=== PATIENT | male | born 1960 | race American Indian/Alaskan Native ===

== ENCOUNTER 2023-11-30 11:33 | Inpatient (IN) | payer OTHER ==
[2023-11-30] MEDS ORDERED: IBUPROFEN 600 MG TABLET (FP) PO ONE (13:42)
[2023-11-30] MEDS: IBUPROFEN 600 MG TABLET (FP) PO ONE (13:47)
[2023-11-30] MEDS ORDERED: VANCOMYCIN/WATER 1250 MG 1,250 MG/250 ML BAG IVPB ONE (14:09)
[2023-11-30] MEDS ORDERED: PIPERACILLIN/TAZOB 4.5 GM 4.5 GM/100 ML BAG IVPB ONE (14:10)
[2023-11-30] MEDS: LACTATED RINGERS SOLUTION 1000 ML INFUS.BAG IV ONE ×2 (14:55→16:09)
[2023-11-30] MEDS: ACETAMINOPHEN 1000 MG/100 ML BAG IVPB ONE (14:56)
[2023-11-30] MEDS: VANCOMYCIN PREMIX 1.5 GM 1,500 MG/300 ML BAG IVPB ONE (14:56)
[2023-11-30] MEDS ORDERED: ACETAMINOPHEN INJECTION 100 ML IVPB ONE (14:56)
[2023-11-30 15:24] LABS: BASO % 0.3 % (0-2.0); EOS % 0.5 % (0-4.5); HEMOGLOBIN 10.5 GM/dL (11.7-16.9); MEAN CELL VOLUME 88.4 fl (80-96); MEAN PLT VOLUME 7.2 fl (7.5-11.1); MONO % 8.1 % (3.8-10.2); NEUT % 83.1 % (42.8-82.8); PLATELET COUNT 423 10^3/uL (134-434); RDW 15.1 % (11.9-15.9); WHITE BLOOD COUNT 18.7 K/mm3 (4.0-10.0)
[2023-11-30 15:30] LABS: INR 1.19 (0.83-1.09); PROTHROMBIN TIME (PATIENT) 13.8 SEC (9.7-13.0)
[2023-11-30 15:33] LABS: ACTIVATED PTT 32.8 SECONDS (25.2-36.5)
[2023-11-30 15:42] LABS: POTASSIUM 5.3 mmol/L (3.5-5.1)
[2023-11-30 15:43] LABS: BLOOD UREA NITROGEN 32.1 mg/dL (7-18); CALCIUM 8.6 mg/dL (8.5-10.1)
[2023-11-30 15:44] LABS: ALBUMIN 2.3 g/dl (3.4-5.0)
[2023-11-30 15:46] LABS: CREATININE 1.3 mg/dL (0.55-1.3)
[2023-11-30 15:48] LABS: BILIRUBIN,TOTAL 0.6 mg/dL (0.2-1); TOT PROT 8.2 g/dl (6.4-8.2)
[2023-11-30] MEDS: VANCOMYCIN/WATER 1250 MG 1,250 MG/250 ML BAG IVPB ONE (15:57)
[2023-11-30] MEDS: VANCOMYCIN HCL 1,500 MG in DEXTROSE 5%-WATER - 500 ML IVPB ONE (15:57)
[2023-11-30] MEDS: PIPERACILLIN/TAZOB 4.5 GM 4.5 GM in DEXTROSE 5%-WATER 100 ML IVPB ONE (15:57)
[2023-11-30] MEDS ORDERED: SODIUM ZIRCONIUM CYCLOSILICATE (LOKELMA) 10 GM PACKET ONE (16:21)
[2023-11-30] MEDS: SODIUM ZIRCONIUM CYCLOSILICATE (LOKELMA) 5 GM PACKET PO ONE (16:36)
[2023-11-30] MEDS ORDERED: ACETAMINOPHEN 325 MG TABLET (FP) PO PRN (17:02)
[2023-11-30 19:36] VITALS: BMI 26.6
[2023-11-30] MEDS ORDERED: FENTANYL PATCH WASTE MC PRN (20:45)
[2023-11-30 20:56] LABS: BASO % 0.3 % (0-2.0); HEMATOCRIT 30.3 % (35.4-49); HEMOGLOBIN 10.3 GM/dL (11.7-16.9); LYMPH % 9.7 % (8-40); MCH 29.6 pg (25.7-33.7); MCHC 33.9 g/dl (32.0-35.9); MEAN CELL VOLUME 87.4 fl (80-96); MEAN PLT VOLUME 6.9 fl (7.5-11.1); PLATELET COUNT 376 10^3/uL (134-434); RBC 3.46 M/mm3 (4.00-5.60); RDW 15.6 % (11.9-15.9)
[2023-11-30] MEDS: HEPARIN NA (PORCINE) 5,000 UNITS/ML 1ML VIAL SQ SCH (21:21)
[2023-11-30] MEDS: PIPERACILLIN/TAZOB 4.5 GM 4.5 GM in DEXTROSE 5%-WATER 100 ML IVPB SCH (21:21)
[2023-11-30] MEDS: INSULIN ASPART SLIDING SCALE (NOVOLOG) 1 VIAL SQ SCH (22:11)
[2023-11-30] MEDS: SENNOSIDES 8.6MG TABLET (FP) PO SCH (22:12)
[2023-11-30] MEDS: oxyCODONE HCL 5 MG TABLET PO PRN (23:49)
[2023-12-01 09:03] LABS: BASO % 0.2 % (0-2.0); EOS % 0.5 % (0-4.5); HEMATOCRIT 28.9 % (35.4-49); LYMPH % 7.8 % (8-40); MCH 30.1 pg (25.7-33.7); MCHC 34.6 g/dl (32.0-35.9); MONO % 6.6 % (3.8-10.2); NEUT % 84.9 % (42.8-82.8); PLATELET COUNT 380 10^3/uL (134-434); RBC 3.32 M/mm3 (4.00-5.60); RDW 15.2 % (11.9-15.9); WHITE BLOOD COUNT 16.3 K/mm3 (4.0-10.0)
[2023-12-01 09:20] LABS: POTASSIUM 4.7 mmol/L (3.5-5.1)
[2023-12-01 09:31] LABS: CALCIUM 8.3 mg/dL (8.5-10.1)
[2023-12-01 09:32] LABS: MAGNESIUM 2.3 mg/dL (1.8-2.4)
[2023-12-01 09:35] LABS: CREATININE 1.3 mg/dL (0.55-1.3)
[2023-12-01 09:36] LABS: BILIRUBIN,TOTAL 0.5 mg/dL (0.2-1); TOT PROT 6.9 g/dl (6.4-8.2)
[2023-12-01 09:37] LABS: ALBUMIN 1.8 g/dl (3.4-5.0)
[2023-12-01] MEDS ORDERED: fentaNYL 12mcg/hr PATCH.TD72 TD SCH (10:00)
[2023-12-01] MEDS: LENVATINIB PO SCH (10:30)
[2023-12-01] MEDS: [UNRECOGNIZED DRUG - OTHER] PO SCH (10:30)
[2023-12-01] MEDS ORDERED: INSULIN (NOVOLOG) ASPART 100 UNITS/ML 10ML VIAL ONE ×2 (11:00→21:30)
[2023-12-01] MEDS ORDERED: ONDANSETRON 4 MG/2 ML VIAL IVPUSH PRN ×2 (12:30→14:25)
[2023-12-01] MEDS: PIPERACILLIN/TAZOB 4.5 GM 4.5 GM in DEXTROSE 5%-WATER 100 ML IVPB SCH (14:28)
[2023-12-01] MEDS: LACTATED RINGERS SOLUTION 1,000 ML IV SCH ×2 (14:30→15:07)
[2023-12-01] MEDS ORDERED: PIPERACILLIN/TAZOB 4.5 GM 4.5 GM in DEXTROSE 5%-WATER 100 ML IVPB SCH (15:00)
[2023-12-01] MEDS: VANCOMYCIN/WATER FOR INJ (PEG) 1,000 MG/200 ML BAG IVPB SCH (16:24)
[2023-12-01] MEDS: oxyCODONE HCL 5 MG TABLET PO PRN ×2 (16:24→21:45)
[2023-12-01] MEDS: INSULIN ASPART SLIDING SCALE (NOVOLOG) 1 VIAL SQ SCH (17:33)
[2023-12-01] MEDS: PIPERACILLIN/TAZOB 3.375 GM 3.375 GM in DEXTROSE 5%-WATER - 50 ML IVPB SCH (18:28)
[2023-12-01] MEDS: ACETAMINOPHEN 325 MG TABLET (FP) PO SCH (20:15)
[2023-12-01] MEDS: SENNOSIDES 8.6MG TABLET (FP) PO SCH (21:45)
[2023-12-01] MEDS: VALSARTAN 160 MG TABLET PO SCH (21:45)
[2023-12-01] MEDS: HEPARIN NA (PORCINE) 5,000 UNITS/ML 1ML VIAL SQ SCH (21:45)
[2023-12-01] MEDS ORDERED: VALSARTAN 160 MG TABLET PO SCH (22:00)
[2023-12-02] MEDS: LENVATINIB MESYLATE PO SCH (09:52)
[2023-12-02 09:53] LABS: BASO % 0.7 % (0-2.0); EOS % 2.7 % (0-4.5); HEMATOCRIT 28.8 % (35.4-49); HEMOGLOBIN 9.8 GM/dL (11.7-16.9); LYMPH % 8.8 % (8-40); MEAN CELL VOLUME 88.2 fl (80-96); MEAN PLT VOLUME 6.7 fl (7.5-11.1); MONO % 6.5 % (3.8-10.2); NEUT % 81.3 % (42.8-82.8); PLATELET COUNT 383 10^3/uL (134-434); RBC 3.26 M/mm3 (4.00-5.60); RDW 15.6 % (11.9-15.9); WHITE BLOOD COUNT 17.7 K/mm3 (4.0-10.0)
[2023-12-02 10:24] LABS: POTASSIUM 4.2 mmol/L (3.5-5.1)
[2023-12-02 10:26] LABS: ALBUMIN 1.7 g/dl (3.4-5.0); CALCIUM 8.6 mg/dL (8.5-10.1)
[2023-12-02 10:27] LABS: BLOOD UREA NITROGEN 27.5 mg/dL (7-18)
[2023-12-02 10:30] LABS: CREATININE 1.4 mg/dL (0.55-1.3)
[2023-12-02 10:31] LABS: BILIRUBIN,TOTAL 0.7 mg/dL (0.2-1); TOT PROT 6.8 g/dl (6.4-8.2)
[2023-12-02] MEDS ORDERED: INSULIN (NOVOLOG) ASPART 100 UNITS/ML 10ML VIAL ONE ×2 (11:22→22:10)
[2023-12-02] MEDS: POLYETHYLENE GLYCOL (HEALTHYLAX) 3350 17 GM PACKET PO SCH (13:31)
[2023-12-03 09:29] LABS: BASO % 0.5 % (0-2.0); EOS % 3.9 % (0-4.5); HEMATOCRIT 30.7 % (35.4-49); HEMOGLOBIN 10.3 GM/dL (11.7-16.9); LYMPH % 15.6 % (8-40); MCH 29.8 pg (25.7-33.7); MCHC 33.5 g/dl (32.0-35.9); MEAN CELL VOLUME 88.9 fl (80-96); MEAN PLT VOLUME 7.1 fl (7.5-11.1); MONO % 5.6 % (3.8-10.2); NEUT % 74.4 % (42.8-82.8); PLATELET COUNT 456 10^3/uL (134-434); RBC 3.45 M/mm3 (4.00-5.60); RDW 15.3 % (11.9-15.9); WHITE BLOOD COUNT 13.2 K/mm3 (4.0-10.0)
[2023-12-03 09:44] LABS: POTASSIUM 4.8 mmol/L (3.5-5.1)
[2023-12-03 09:50] LABS: ALBUMIN 1.8 g/dl (3.4-5.0); CALCIUM 8.7 mg/dL (8.5-10.1)
[2023-12-03 09:51] LABS: BLOOD UREA NITROGEN 23.8 mg/dL (7-18)
[2023-12-03 09:53] LABS: CREATININE 1.3 mg/dL (0.55-1.3)
[2023-12-03 09:54] LABS: TOT PROT 7.4 g/dl (6.4-8.2)
[2023-12-03 09:59] LABS: BILIRUBIN,TOTAL 0.6 mg/dL (0.2-1)
[2023-12-03] MEDS: AMPICILLIN NA/SULBACTAM NA 3 GM in DEXTROSE 5%-WATER 100 ML IVPB SCH (14:42)
[2023-12-04 09:04] LABS: BASO % 0.9 % (0-2.0); EOS % 5.3 % (0-4.5); HEMATOCRIT 31.6 % (35.4-49); HEMOGLOBIN 10.6 GM/dL (11.7-16.9); LYMPH % 17.6 % (8-40); MCH 29.7 pg (25.7-33.7); MCHC 33.5 g/dl (32.0-35.9); MEAN CELL VOLUME 88.7 fl (80-96); MEAN PLT VOLUME 7.1 fl (7.5-11.1); MONO % 7.8 % (3.8-10.2); NEUT % 68.4 % (42.8-82.8); PLATELET COUNT 468 10^3/uL (134-434); RBC 3.56 M/mm3 (4.00-5.60); RDW 15.3 % (11.9-15.9)
[2023-12-04 09:20] LABS: POTASSIUM 4.7 mmol/L (3.5-5.1)
[2023-12-04 09:27] LABS: CALCIUM 8.8 mg/dL (8.5-10.1)
[2023-12-04 09:28] LABS: ALBUMIN 1.8 g/dl (3.4-5.0); BLOOD UREA NITROGEN 23.1 mg/dL (7-18)
[2023-12-04 09:31] LABS: BILIRUBIN,TOTAL 0.3 mg/dL (0.2-1); TOT PROT 7.4 g/dl (6.4-8.2)
[2023-12-04] MEDS ORDERED: INSULIN (NOVOLOG) ASPART 100 UNITS/ML 10ML VIAL ONE (11:41)
[2023-12-04 14:37] VITALS: RESP 18
[2023-12-05] MEDS ORDERED: AMPICILLIN NA/SULBACTAM NA 3 GM VIAL ONE (03:51)
[2023-12-05] MEDS ORDERED: INSULIN (NOVOLOG) ASPART 100 UNITS/ML 10ML VIAL ONE (14:23)
[2023-12-05 19:00] VITALS: BP 152/80; PULSE 84; TEMP 98.4
== END 2023-12-05 21:56 | disposition home or self-care (01) | DRG 364 ==
LOC: JER 11:33 → JERBED 16:17 → J8W 18:46
PROVIDERS: ADMIT Internal Medicine; ATTEND Internal Medicine
PROC: 0J990ZZ Drainage of Buttock Subcutaneous Tissue and Fascia, Open Approach (ICD-10-PCS; principal; 2023-12-01 11:30)
DX: L02.31 Cutaneous abscess of buttock (principal); E87.1 Hypo-osmolality and hyponatremia; C22.0 Liver cell carcinoma; K86.89 Other specified diseases of pancreas; D37.8 Neoplasm of uncertain behavior of other specified digestive organs; I10 Essential (primary) hypertension; R74.01 Elevation of levels of liver transaminase levels; E11.9 Type 2 diabetes mellitus without complications; E78.5 Hyperlipidemia, unspecified; E87.5 Hyperkalemia; D64.9 Anemia, unspecified; D72.829 Elevated white blood cell count, unspecified; Z86.19 Personal history of other infectious and parasitic diseases
CPT/HCPCS: 0241U-QW; 36415; 71045-TC-FY; 73130-TC-RT-FY; 74177-TC; 80053; 82436; 82962; 83036; 83735; 83930; 83935; 84133; 84300; 85025; 85610; 85730; 86850; 86900; 86901; 87040; 87070; 87205; 93005; 93010; 94760; 99285-25; G0480; J0131; J1644; Q9967

== ENCOUNTER 2023-12-11 10:46 | Inpatient (IN) | payer OTHER ==
[2023-12-11 10:51] VITALS: BMI 27.6
[2023-12-11 11:50] LABS: BASO % 0.5 % (0-2.0); EOS % 0.3 % (0-4.5); HEMATOCRIT 35.8 % (35.4-49); HEMOGLOBIN 12.1 GM/dL (11.7-16.9); LYMPH % 10.5 % (8-40); MCH 30.2 pg (25.7-33.7); MCHC 33.9 g/dl (32.0-35.9); MEAN CELL VOLUME 89.1 fl (80-96); MEAN PLT VOLUME 6.6 fl (7.5-11.1); MONO % 5.2 % (3.8-10.2); NEUT % 83.5 % (42.8-82.8); PLATELET COUNT 443 10^3/uL (134-434); RBC 4.02 M/mm3 (4.00-5.60); RDW 15.6 % (11.9-15.9); WHITE BLOOD COUNT 13.1 K/mm3 (4.0-10.0)
[2023-12-11] MEDS ORDERED: morphine SULFATE 4 MG/ML VIAL ONE ×2 (11:55→14:15)
[2023-12-11 12:04] LABS: INR 1.2 (0.83-1.09); PROTHROMBIN TIME (PATIENT) 13.9 SEC (9.7-13.0)
[2023-12-11 12:07] LABS: ACTIVATED PTT 37.4 SECONDS (25.2-36.5)
[2023-12-11] MEDS: morphine CARPU-JECT 4 MG/1 ML DISP.SYRIN IVPUSH ONE ×2 (12:07→14:29)
[2023-12-11 12:11] LABS: POTASSIUM 4.8 mmol/L (3.5-5.1)
[2023-12-11 12:14] LABS: ALBUMIN 2.1 g/dl (3.4-5.0); BLOOD UREA NITROGEN 17.9 mg/dL (7-18)
[2023-12-11 12:15] LABS: MAGNESIUM 2.1 mg/dL (1.8-2.4)
[2023-12-11 12:17] LABS: CREATININE 1.1 mg/dL (0.55-1.3)
[2023-12-11 12:19] LABS: BILIRUBIN,TOTAL 0.5 mg/dL (0.2-1)
[2023-12-11 15:00] LABS: EPI CELLS 5 /uL (0-25.1); HYALINE CASTS 0 /uL (0-3.1); URINE APPEARANCE CLEAR; URINE BACTERIA 2 /uL (0-1359); URINE BILIRUBIN NEGATIVE (NEGATIVE); URINE COLOR YELLOW; URINE GLUCOSE (UA) NEGATIVE (NEGATIVE); URINE KETONE NEGATIVE (NEGATIVE); URINE LEUK ESTERASE NEGATIVE (NEGATIVE); URINE NITRITE NEGATIVE (NEGATIVE); URINE PROTEIN 2+ (NEGATIVE); URINE RBC 14 /uL (0-23.9); URINE UROBILINOGEN 0.2 mg/dL (0.2-1.0); URINE WBC 12 /uL (0-25.8)
[2023-12-11] MEDS: DEXTROSE 5%-0.45% SALINE 1,000 ML IV SCH (19:38)
[2023-12-11] MEDS: POLYETHYLENE GLYCOL (HEALTHYLAX) 3350 17 GM PACKET PO SCH (21:51)
[2023-12-11] MEDS: SENNOSIDES 8.6MG TABLET (FP) PO SCH (21:51)
[2023-12-11] MEDS: oxyCODONE HCL 5 MG TABLET PO PRN (21:51)
[2023-12-11] MEDS: VALSARTAN 160 MG TABLET PO SCH (21:51)
[2023-12-11] MEDS: INSULIN ASPART SLIDING SCALE (NOVOLOG) 1 VIAL SQ SCH (21:52)
[2023-12-12] MEDS: ACETAMINOPHEN 1000 MG/100 ML BAG IVPB ONE (06:59)
[2023-12-12 08:48] LABS: BASO % 0.7 % (0-2.0); EOS % 0.7 % (0-4.5); HEMATOCRIT 33.6 % (35.4-49); HEMOGLOBIN 11.8 GM/dL (11.7-16.9); LYMPH % 18.8 % (8-40); MCH 30.9 pg (25.7-33.7); MCHC 35.1 g/dl (32.0-35.9); MEAN CELL VOLUME 88.3 fl (80-96); MEAN PLT VOLUME 6.7 fl (7.5-11.1); NEUT % 73.8 % (42.8-82.8); PLATELET COUNT 468 10^3/uL (134-434); RBC 3.81 M/mm3 (4.00-5.60); WHITE BLOOD COUNT 11.6 K/mm3 (4.0-10.0)
[2023-12-12 09:11] LABS: POTASSIUM 4.7 mmol/L (3.5-5.1)
[2023-12-12 09:16] LABS: CALCIUM 9.5 mg/dL (8.5-10.1)
[2023-12-12 09:17] LABS: ALBUMIN 2.1 g/dl (3.4-5.0); BLOOD UREA NITROGEN 18.4 mg/dL (7-18)
[2023-12-12 09:20] LABS: CREATININE 0.9 mg/dL (0.55-1.3)
[2023-12-12 09:21] LABS: BILIRUBIN,TOTAL 0.4 mg/dL (0.2-1); TOT PROT 8.2 g/dl (6.4-8.2)
[2023-12-12] MEDS: METHYLNALTREXONE BROMIDE 8 MG/0.4 ML SYRINGE SQ ONE (09:53)
[2023-12-12] MEDS: LENVATINIB MESYLATE PO SCH (09:54)
[2023-12-12] MEDS: ENOXAPARIN NA (PORCINE) 40 MG/0.4 ML DISP.SYRIN SQ SCH (09:54)
[2023-12-12] MEDS ORDERED: DOCUSATE SODIUM 100 MG CAPSULE (FP) PO PRN (12:21)
[2023-12-12] MEDS: morphine SULFATE 4 MG/ML VIAL IVPUSH PRN (21:02)
[2023-12-13] MEDS: POLYETHYLENE GLYCOL (HEALTHYLAX) 3350 17 GM PACKET PO SCH (13:46)
[2023-12-13] MEDS ORDERED: FENTANYL PATCH WASTE TD PRN (15:42)
[2023-12-13] MEDS ORDERED: METHYLNALTREXONE BROMIDE 8 MG/0.4 ML SYRINGE SQ ONE (15:44)
[2023-12-13] MEDS: Methylnaltrexone Bromide 12 MG/0.6 ML KIT SQ ONE (17:02)
[2023-12-13] MEDS: fentaNYL 50mcg/hr PATCH.TD72 TD SCH (17:03)
[2023-12-13 23:13] VITALS: RESP 20
[2023-12-14 09:09] VITALS: BP 113/75; PULSE 100; TEMP 97.6
[2023-12-14] MEDS: METHYLNALTREXONE BROMIDE 8 MG/0.4 ML SYRINGE SQ ONE (10:24)
== END 2023-12-14 14:59 | disposition home or self-care (01) | DRG 254 ==
LOC: JER 10:46 → JERBED 11:20 → J8W 16:54
PROVIDERS: ADMIT Family Medicine; ATTEND Family Medicine
DX: K59.03 Drug induced constipation (principal); T40.2X5A Adverse effect of other opioids, initial encounter; I10 Essential (primary) hypertension; E78.5 Hyperlipidemia, unspecified; E11.9 Type 2 diabetes mellitus without complications; B19.10 Unspecified viral hepatitis B without hepatic coma; C22.0 Liver cell carcinoma; C78.89 Secondary malignant neoplasm of other digestive organs; D63.0 Anemia in neoplastic disease
CPT/HCPCS: 36415; 74019-TC-FY; 74177-TC; 80053; 81003; 82962; 83690; 83735; 85025; 85610; 85730; 87086; 93005; 93010; 99285-25; J0131